=== PATIENT | female | born 1965 | race Caucasian/White ===

== ENCOUNTER 2023-08-14 18:41 | Emergency (ER) | payer MEDICAID, OTHER ==
[~2023-08-14] VITALS: Ht 147.3 cm; Wt 96.0 kg
[~2023-08-14 18:41] MED LIST: MELO-102 PO
[2023-08-14] MEDS ORDERED: oxyCODONE/APAP 5-325mg tablet PO ONE (21:15)
[2023-08-14 21:26] VITALS: BP 157/91; PULSE 86; RESP 18; TEMP 98.4; O2SAT 97
[2023-08-14] MEDS ORDERED: IBUP-1984 PO ×3 (22:33→22:56)
[2023-08-14] MEDS ORDERED: CYCL-1 PO ×3 (22:33→22:56)
--- NOTE | 2023-08-14 23:06 | NUR ---
I have reviewed and agree with all interventions, assessments performed and documented by GERALD GREEN
== END 2023-08-14 23:10 | disposition home or self-care (01) ==
LOC: ER 18:41
DX: S20.212A Contusion of left front wall of thorax, initial encounter (principal); M54.50 Low back pain, unspecified; I10 Essential (primary) hypertension; F17.200 Nicotine dependence, unspecified, uncomplicated; Z91.030 Bee allergy status; Z88.5 Allergy status to narcotic agent; Z91.09 Other allergy status, other than to drugs and biological substances; Z79.899 Other long term (current) drug therapy; Z79.1 Long term (current) use of non-steroidal anti-inflammatories (NSAID); V89.0XXA Person injured in unspecified motor-vehicle accident, nontraffic, initial encounter; Y93.89 Activity, other specified; Y92.89 Other specified places as the place of occurrence of the external cause; Y99.8 Other external cause status
CPT/HCPCS: 71250; 72131; 99284